=== PATIENT | female | born 1990 | race Asian ===

== ENCOUNTER 2018-02-04 11:24 | Emergency (ER) | payer OTHER ==
[2018-02-07 22:10] LABS: Chlamydia by PCR Not Detected (NotDetected); GC by PCR Not Detected (NotDetected)
== END 2018-02-04 12:54 | disposition home or self-care (01) ==
LOC: SCSER 11:24
DX: O23.591 Infection of other part of genital tract in pregnancy, first trimester (principal); Z3A.01 Less than 8 weeks gestation of pregnancy
CPT/HCPCS: 87480; 87491; 87510; 87591; 87660; 99283

== ENCOUNTER 2018-10-04 11:16 | Inpatient (IN) | payer OTHER, SELFPAY ==
[2018-10-07] MEDS: Lactated Ringer's 1,000 ML IV SCH ×2 (07:10→19:05)
[2018-10-07] MEDS ORDERED: NS w/ Oxytocin 10 units 500 ML ONE (07:16)
[2018-10-07] MEDS ORDERED: Ondansetron PF 4 MG/2 ML Vial IVP PRN ×3 (07:18→20:45)
[2018-10-07] MEDS ORDERED: Lidocaine 1% (PF) 30 ML VIAL SC PRN (07:18)
[2018-10-07] MEDS ORDERED: Carboprost 250 MCG/ML AMP IM PRN (07:18)
[2018-10-07] MEDS ORDERED: Ibuprofen 800 MG TAB PO PRN (07:18)
[2018-10-07] MEDS ORDERED: Butorphanol Tartrate 1 MG/ML VIAL SLOW IVP PRN (07:18)
[2018-10-07] MEDS ORDERED: NS / Oxytocin 40 units/1000ml 1,000 ML IV PRN (07:18)
[2018-10-07] MEDS ORDERED: Misoprostol 200 MCG TAB PR PRN (07:18)
[2018-10-07] MEDS ORDERED: Methylergonovine 0.2 MG/ML VIAL IM PRN (07:18)
[2018-10-07] MEDS ORDERED: Diphenoxylate HCl/Atropine Tablet PO PRN (07:18)
[2018-10-07] MEDS ORDERED: HYDROcodone/Acetaminophen 5/325 mg Tablet PO PRN ×3 (07:18→20:45)
[2018-10-07] MEDS ORDERED: Promethazine HCl 25 MG/ML VIAL IM PRN ×2 (07:18→10:21)
[2018-10-07] MEDS ORDERED: Penicillin G Potassium 5 MILL.UNITS in Sodium Chloride 0.9% 100 ML IVPB SCH (07:18)
[2018-10-07] MEDS ORDERED: Acetaminophen 500 MG TAB PO PRN (07:18)
[2018-10-07] MEDS ORDERED: NS w/ Oxytocin 10 units 500 ML IV SCH (07:18)
[2018-10-07 07:34] VITALS: BMI 18.8
[2018-10-07 08:40] LABS: Hemoglobin 13.1 g/dL (12.0-16.0); Mean Corpuscular HGB CONC 35.5 g/dL (32.0-36.0); Mean Corpuscular Hemoglobin 32.9 pg (27.0-31.0); Mean Corpuscular Volume 92.6 fL (78.0-98.0); Mean Platelet Volume 8.6 fL (7.4-10.4); Platelet Count 136 thou/uL (130-400); RBC Distribution Width 12.5 % (11.5-14.5); Red Blood Cell (RBC) Count 3.98 mill/uL (4.20-5.40); White Blood Cell (WBC) Count 9.2 thou/uL (4.8-10.8)
[2018-10-07 09:32] LABS: Syphilis Antibody Nonreactive (Nonreactive); Syphilis Antibody Index 0.04 S/CO (<1.00 Non-Reactive)
[2018-10-07 09:33] LABS: HBSAg Index 0.28 S/CO (0-0.99); Hep B Surf Ag Non-Reactive S/CO (NonReactive)
[2018-10-07] MEDS ORDERED: Fentanyl 4 mcg/Bup 0.1% Cadd 100 ML ONE ×2 (09:49→16:17)
[2018-10-07] MEDS ORDERED: diphenhydrAMINE 50 MG/ML VIAL IVP PRN (10:21)
[2018-10-07] MEDS ORDERED: Acetaminophen 325 MG TAB PO PRN (10:21)
[2018-10-07] MEDS ORDERED: Lactated Ringer's 500 ML IV PRN (10:21)
[2018-10-07] MEDS ORDERED: ePHEDrine/0.9% NaCl/PF SYRINGE 50 mg/10 ml SLOW IVP PRN (10:21)
[2018-10-07] MEDS ORDERED: Naloxone HCl 0.4 mg/ml Vial IVP PRN ×2 (10:21)
[2018-10-07] MEDS ORDERED: Fentanyl 4 mcg/Bupivacaine 0.1% Cassette 100 ML EPIDURAL SCH (10:30)
[2018-10-07] MEDS ORDERED: Communication Order-Pharmacy FS SCH (10:30)
--- NOTE | 2018-10-07 10:40 | PDOC.LDHP ---
Labor and Delivery H&P Chief complaint: scheduled induction HPI: 27yo at 41w0d by LMP here for postdate IOL. No complaints. Slight LOF. Current gestational age (weeks): 41 Due date: 09/30/18 Dating criteria: last menstrual period Grav: 1 Para: 0 OB History Details: none Current complications: none Abnormal US findings: No Past Medical History: denies Current medications: pre-prakash vitamins Previous surgical history: none Allergies/Adverse Reactions: Allergies Allergy/AdvReac Type Severity Reaction Status Date / Time No Known Allergies Allergy Verified 10/07/18 07:34 Social history: none - Physical Exam Vital signs reviewed and normal: yes General: NAD Heart: RRR Lungs: CTAB Abdomen: gravid Extremeties: no edema FHT: category 1 [place] contractions every: q5min - Vaginal Exam cm dilated: 3 Effacement: 75% Station: -1 (arom clear scant) - OB Labs RH: positive Antibody Screen: negative HIV: negative RPR: negative HEPSAg: negative 1 hour GCT: negative GBS: positive Urine drug screen: negative Rubella: immune - Assessment L&D Assessment: medically indicated induction - Plan Plan: admit to L&D, labor augmentation if indicated, GBS antibiotic prophylaxis , informed consent obtained, anesthesia consult for pain management
[2018-10-07] MEDS: Penicillin G 2.5 MILL.units 2.5 MILL.UNITS in Premix Bag 1 BAG IVPB SCH ×2 (11:45→15:45)
[2018-10-07] MEDS ORDERED: Fentanyl 100 MCG/2 ML VIAL ONE (14:40)
[2018-10-07] MEDS ORDERED: Fentanyl 100 MCG/2 ML VIAL EPIDURAL SCH (16:15)
--- NOTE | 2018-10-07 18:25 | PDOC.OPDEL ---
OB Operative/Delivery Note Delivery Dr/Surgeon: Wyatt Assist: n/a Pre-Delivery Diagnosis: medically indicated induction (postdate IOL) Procedure/Post Delivery Dx: spontaneous vaginal delivery Weeks gestation: 41 Anesthesia: epidural - Findings A Sex: female - 1 min: 8 - 5 min: 9 - Additional Findings/Plan Placenta delivered: spontaneous Repaired Obstetrical Laceration: right labial (repaired with 3-0 vicryl in running fashion) Estimated blood loss: 150cc Compilations/Other Findings: NC x 1 delivered through Post delivery plan: routine recovery
[2018-10-07] MEDS ORDERED: Milk Of Magnesia 30 ML UDCUP PO PRN (20:45)
[2018-10-07] MEDS ORDERED: Bisacodyl 10 MG SUPP PR PRN (20:45)
[2018-10-07] MEDS ORDERED: diphenhydrAMINE 25 MG CAP PO PRN (20:45)
[2018-10-07] MEDS ORDERED: Lanolin Ointment 7 GM TUBE TOP PRN (20:45)
[2018-10-07] MEDS ORDERED: Benzocaine-Menthol 82.5 ML CAN TOP PRN (20:45)
[2018-10-07] MEDS ORDERED: NS / Oxytocin 40 units/1000ml 1,000 ML IV SCH (20:45)
[2018-10-07] MEDS ORDERED: Preparation H Ointment 28 GM TUBE PR PRN (20:45)
[2018-10-07] MEDS: Docusate Calcium (SURFAK) 240 MG CAP PO SCH (22:18)
[2018-10-07] MEDS: Ibuprofen 800 MG TAB PO SCH (22:18)
[2018-10-07] MEDS ORDERED: Bupivacaine 0.25% HCL 30 ML VIAL ONE (23:00)
[2018-10-08] MEDS: Ibuprofen 800 MG TAB PO SCH ×3 (07:14→21:41)
[2018-10-08] MEDS: Prenatal Vitamin 1 TAB PO SCH (08:52)
[2018-10-08] MEDS: Docusate Calcium (SURFAK) 240 MG CAP PO SCH ×2 (08:52→21:41)
[2018-10-08] MEDS ORDERED: Adacel (T-DAP) 0.5 ML SYRINGE IM ONE (09:00)
--- NOTE | 2018-10-08 09:53 | PRG ---
DATE OF SERVICE: 10/08/2018 SUBJECTIVE: The patient is a 27-year-old, G1, now P1 female, day #1 status post a term spontaneous vaginal delivery. She reports she is tolerating p.o., voiding on her own, having decreased lochia and good pain control. OBJECTIVE: VITAL SIGNS: This morning, blood pressure is 95/54, temperature 98.0, pulse of 69, and respiratory rate of 17. GENERAL: She appears to be in no acute distress. She is alert, oriented, cooperative, and pleasant to interact with. HEENT: Head is normocephalic atraumatic. ABDOMEN: Fundus is firm at the umbilicus. EXTREMITIES: Nontender, nonedematous. LABORATORY DATA: Post-delivery hemoglobin is unavailable. However, hemoglobin and hematocrit before delivery are 13.1 and 36.9. Estimated blood loss was 150. ASSESSMENT AND PLAN: The patient is day #1 status post a term spontaneous vaginal delivery, anticipate discharge tomorrow. Job ID: [id number]
[2018-10-08] MEDS: Ferrous Sulfate 325 MG TAB PO SCH ×2 (12:30→16:53)
[2018-10-08] MEDS: Penicillin G 2.5 MILL.units 2.5 MILL.UNITS in Premix Bag 1 BAG IVPB SCH (16:12)
[2018-10-09] MEDS: Ibuprofen 800 MG TAB PO SCH (05:48)
[2018-10-09] MEDS: Prenatal Vitamin 1 TAB PO SCH (09:24)
[2018-10-09] MEDS: Docusate Calcium (SURFAK) 240 MG CAP PO SCH (09:24)
[2018-10-09] MEDS: Ferrous Sulfate 325 MG TAB PO SCH (09:25)
[2018-10-09 09:58] VITALS: BP 90/54; TEMP 99.1
== END 2018-10-09 12:45 | disposition home or self-care (01) | DRG 807 ==
LOC: EDSTATUS 14:52 → L&D 10-07 06:39 → 3SW 10-07 21:31
PROVIDERS: ADMIT Student in an Organized Health Care Education/Training Program; ATTEND Student in an Organized Health Care Education/Training Program
PROC: 10E0XZZ Delivery of Products of Conception, External Approach (ICD-10-PCS; principal; 2018-10-07)
PROC: 0HQ9XZZ Repair Perineum Skin, External Approach (ICD-10-PCS; 2018-10-07)
DX: O48.0 Post-term pregnancy (principal); Z37.0 Single live birth; Z3A.41 41 weeks gestation of pregnancy; O70.0 First degree perineal laceration during delivery
CPT/HCPCS: 36415; 51702; 85027; 86780; 86850; 86900; 86901; 87340; J2540; J2590; J3010; J3490; S0020

== ENCOUNTER 2018-10-04 15:16 | Day surgery (SDC) | payer OTHER ==
[2018-10-04 16:15] VITALS: BMI 23.8
[2018-10-04 16:16] VITALS: BP 95/56; TEMP 99.1
[2018-10-04 16:20] LABS: Amnisure Internal Control QC ACCEPTABLE (ACCEPTABLE); Amnisure Test No Membranes Rupture (No Rupture)
--- NOTE | 2018-10-04 16:56 | PDOC.LDHP ---
Labor and Delivery H&P Chief complaint: loss of fluid (X 1 episode (brief)) HPI: Patient of Dr Schneider EGA: 41 weeks 4 days CC: possible LOF HPI: 27 yo G1 at 40.4 with possible small LOF x 1 earlier. None since. Good FM. No ROSA, no VB, no visual changes. Denies issues. Has IUOL scheduled this Wednesday with her MD Review of Systems: complete ROS performed and as per HPI only Current gestational age (weeks): 40 (4 days) Dating criteria: last menstrual period Grav: 1 OB History Details: none Current complications: none Abnormal US findings: No Current medications: pre-prakash vitamins Previous surgical history: other (wisdom teeth) Allergies/Adverse Reactions: Allergies Allergy/AdvReac Type Severity Reaction Status Date / Time No Known Allergies Allergy Unverified 10/04/18 16:12 - Physical Exam Vital signs reviewed and normal: yes General: NAD Heart: RRR Lungs: CTAB Abdomen: gravid Extremeties: no edema FHT: category 1 [place] contractions every: rare - Vaginal Exam cm dilated: 2 (was 3cm by Dr schneider in office last check) Effacement: 50% Station: -1 - Assessment Threatened labor at late term. No evidence LOF on exam or with - Plan Plan: observation in L&D (NST reactive; no CTX; I do not suspect LOF per exam. Cough did not result in LOF on perineum. OK for follow up with her MD)
== END 2018-10-04 17:18 | disposition home or self-care (01) ==
LOC: L&D/OP 15:16
PROVIDERS: ATTEND Student in an Organized Health Care Education/Training Program
DX: O47.1 False labor at or after 37 completed weeks of gestation (principal); Z3A.40 40 weeks gestation of pregnancy; Z79.899 Other long term (current) drug therapy
CPT/HCPCS: 84112; 99283